=== PATIENT | male | born 1985 | race Caucasian/White ===

== ENCOUNTER 2019-03-05 18:47 | Inpatient (IN) | payer OTHER ==
[2019-03-05] MEDS ORDERED: NS 0.9% 1000 ML** 1,000 ML IV ONE ×2 (22:21→23:56)
[2019-03-05] MEDS ORDERED: Morphine 4 MG/ML VIAL (1 ml) 4 MG/ML VIAL IV ONE (22:23)
[2019-03-05] MEDS ORDERED: Metoclopramide IV* 5 MG/ML 2 ML VIAL IV SLOW PU ONE (22:23)
[2019-03-05 22:38] LABS: ABS Eosinophils 0.2 10^3/ul (0-0.6); ABS Monocytes 0.7 10^3/ul (0-0.8); ABS Neutrophils 5.4 10^3/ul (1.5-7.7); Eosinophil % 1.9 %; Hematocrit 41 % (42-52); Hemoglobin 13.9 g/dL (14.0-18.0); Lymphocyte % 32.1 %; Mean Corpuscular HGB Conc 34 g/dL (31-36); Mean Corpuscular Hemoglobin 28 pg (27-31); Mean Corpuscular Volume 81 fL (80-94); Mean Platelet Volume 9.2 fL (7.4-10.4); Nucleated Red Blood Cells % 0.1; Platelet Count 232 10^3/uL (150-450); Red Blood Count 5.05 10^6 /uL (4.18-5.48); Red Cell Distribution Width 13 % (10-15); White Blood Count 9.3 10^3/uL (3.5-10.8)
[2019-03-05 22:53] LABS: Albumin 4.2 g/dL (3.2-5.2); Albumin/Globulin Ratio 1.4 (1-3); BUN/Creatinine Ratio 9.3 (8-20); Calcium 9.3 mg/dL (8.6-10.3); EGFR African American 106.6 (>60); EGFR Non-African American 88.1 (>60); Globulin 3.1 g/dL (2-4); Potassium 3.5 mmol/L (3.5-5.0); Total Bilirubin 0.5 mg/dL (0.2-1.0); Total Protein 7.3 g/dL (6.4-8.9)
[2019-03-06] MEDS ORDERED: NS 0.9% 1000 ML** 1,000 ML IV SCH (00:30)
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
[2019-03-06 05:26] LABS: Urine Appearance Clear; Urine Bilirubin Negative (Negative); Urine Blood Negative (Negative); Urine Color Yellow; Urine Glucose Negative (Negative); Urine Ketones Negative (Negative); Urine Nitrite Negative (Negative); Urine Protein Negative (Negative); Urine Urobilinogen Negative (Negative)
[2019-03-06 07:14] LABS: BUN/Creatinine Ratio 10.8 (8-20); Calcium 8.5 mg/dL (8.6-10.3); EGFR African American 111.9 (>60); EGFR Non-African American 92.5 (>60); Potassium 3.2 mmol/L (3.5-5.0)
[2019-03-06] MEDS: KCL 20 MEQ/100 ML IVPREMIX* 20 MEQ/100 ML BAG IV SCH ×3 (09:32→14:39)
[2019-03-06] MEDS: Lactated Ringers 1000 ML Bag* 1,000 ML IV SCH ×3 (09:36→23:47)
--- NOTE | 2019-03-06 13:03 | PN ---
Hospitalist Progress Note Date of Service: 03/06/19 Brief update since supervisor filling and packing admission S: Patient feeling well. Good urine output. Denies hematuria, dysuria, or flank pain. Patient is improving. Reports left thigh swelling which is unchanged since admission. Denies chest pain, SOB, fever/chills. Patient reports he has flare of shingles to left arm, which has happened to him in the past at times of stress. O: Gen: young white male, WD/WN, in NAD Skin: left forearm with bandages Cardio: RRR without m/r/g Lungs: CTA throughout Abd: soft, nontender, nondistended; no CVA tenderness Extremities: pedal pulses intact bilaterally, no clubbing or cyanosis; edema to left posterior thigh Neuro: a&ox3, no focal deficits Plan: Hypokalemia-replacing K and switching NS to LR, maintaining rate at 175ml/hr Rhabdo- Cr wnl, CPK downtrending (3645->2516) Pain well controlled, continue prn tylenol
[2019-03-06] MEDS: Acetaminophen TAB* 325 MG PO PRN (18:51)
[2019-03-07] MEDS: Lactated Ringers 1000 ML Bag* 1,000 ML IV SCH ×2 (05:10→10:47)
[2019-03-07] MEDS: Acetaminophen TAB* 325 MG PO PRN (07:17)
[2019-03-07 07:38] LABS: BUN/Creatinine Ratio 13.5 (8-20); EGFR African American 107.9 (>60); EGFR Non-African American 89.1 (>60); Potassium 3.8 mmol/L (3.5-5.0)
[2019-03-07] MEDS ORDERED: Lactated Ringers 1000 ML Bag* 1,000 ML IV SCH (11:02)
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
[2019-03-07 19:28] VITALS: BP 124/71
== END 2019-03-07 16:30 | disposition home or self-care (01) | DRG 351 ==
LOC: ED 18:47 → MED 03-06 00:22 → OBSVTOIN 03-06 14:00
PROVIDERS: ADMIT Internal Medicine; ATTEND Internal Medicine
DX: T79.6XXA Traumatic ischemia of muscle, initial encounter (principal); E87.6 Hypokalemia; V03.90XA Pedestrian on foot injured in collision with car, pick-up truck or van, unspecified whether traffic or nontraffic accident, initial encounter; Z72.89 Other problems related to lifestyle; Y92.9 Unspecified place or not applicable
CPT/HCPCS: 36415; 80048; 80053; 81003; 82550; 85025; 99284; A9270-GY; G0378; J2270; J2765; J3480